=== PATIENT | male | born 1990 | race Caucasian/White ===

== ENCOUNTER 2017-02-07 17:39 | Emergency (ER) | payer OTHER ==
[~2017-02-07] VITALS: Ht 167.6 cm; Wt 102.0 kg
[2017-02-07] MEDS ORDERED: ACETAMINOPHEN WITH CODEINE 300/30MG TABLET PO ONE (19:15)
[2017-02-07 22:17] VITALS: BP 134/96
== END 2017-02-07 23:13 | disposition home or self-care (01) ==
LOC: ER 19:09
DX: S06.9X9A Unspecified intracranial injury with loss of consciousness of unspecified duration, initial encounter (principal); Z88.3 Allergy status to other anti-infective agents; W22.09XA Striking against other stationary object, initial encounter; Y93.89 Activity, other specified; Y92.89 Other specified places as the place of occurrence of the external cause; Y99.8 Other external cause status
CPT/HCPCS: 70450; 99284